=== PATIENT | female | born 1980 | race Two or more races ===

== ENCOUNTER 2022-11-23 11:01 | Emergency (ER) | payer BC, MEDICAID, SELFPAY ==
[2022-11-23 11:11] VITALS: BP 118/77; PULSE 65; RESP 20; TEMP 36.6; O2SAT 97; BMI 25.8
[2022-11-23 11:13] VITALS: BP 118/77; PULSE 65; RESP 16; O2SAT 99
--- NOTE | 2022-11-23 11:19 | W.ED.ABDPA2 ---
HPI - Abdominal Pain General: Chief Complaint: Nausea/Vomiting/Diarrhea Stated Complaint: ABD pain Time Seen by Provider: 11/23/22 11:03 Source: patient Mode of arrival: ambulatory History of Present Illness: 41-year-old female presents to the emergency room with complaints of abdominal pain. The last 4 days she had nausea vomiting and diarrhea she reports loose dark green stools. She has not had any fever sweats or chills. She has had a lot of vomiting no dysuria urgency or frequency or hematuria. She is not been able to eat or drink much. No previous abdominal surgeries no history of nephrolithiasis. No history of pancreatitis patient is not a regular drinker. MD elicited complaint: abdominal pain Pertinent past history: none Onset (ago): minute(s) Pain Consistency: constant Location: None Quality: cramping Radiation: LUQ Exacerbating factors: nothing Relieving factors: nothing Associated Symptoms: Reports bloating, chills, diarrhea, nausea, poor appetite and vomiting; Denies anorexia, belching, change in bowel habits, change in stool character, coffee ground emesis, constipation, GI cramping, dyspepsia, dysuria, excessive flatus, fever(s), heartburn, hematochezia, hematuria, hematemesis, fecal incontinence, loose stools, melena and syncope Review of Systems Const: Reports: chills and change in appetite; Denies: fever(s) ENMT: Denies: throat pain, ear or mastoid pain, nasal discharge or nasal congestion Card: Denies: syncope Resp: Denies: dyspnea, productive cough or non-productive cough GI: Reports: abdominal pain, nausea, vomiting, diarrhea and bloating; Denies: hematemesis, coffee ground emesis, heartburn, constipation, GI cramping, belching, excessive flatus, fecal incontinence, change in bowel habits, change in stool character, hematochezia or melena : Denies: flank pain, dysuria, urinary frequency, urinary urgency or hematuria Skin/Breast: Denies: rash or pruritus Physical Exam Const: GENERAL APPEARANCE: cooperative ORIENTATION/CONSCIOUSNESS: Yes awake, Yes oriented to person, Yes oriented to place and Yes oriented to time HENMT: COMMON NORMALS: normocephalic, atraumatic and hearing grossly normal bilaterally HEAD & SCALP: normocephalic and atraumatic Resp: COMMON NORMALS: normal respiratory effort, No retractions, No use of accessory muscles and clear to auscultation bilaterally AUSCULTATION: clear to auscultation bilaterally Cardio: COMMON NORMALS: regular rate, regular rhythm and No murmurs present (Cardio) RATE: regular rate RHYTHM: regular rhythm GI: COMMON NORMALS: No hepatosplenomegaly present AUSCULTATION: Yes normoactive bowel sounds PALPATION: Yes Tenderness to palpation present (GI) Details: LUQ, No Guarding due to palpation present (GI) and Yes No hepatosplenomegaly present Extremity: COMMON NORMALS: normal to inspection, capillary refill normal, no clubbing, cyanosis or edema, no calf tenderness and no pedal edema Neuro: SENSORIUM/ORIENTATION: Yes oriented to person, Yes oriented to place and Yes oriented to time Skin: COMMON NORMALS: no rashes or lesions noted GENERAL SKIN EXAM: no rashes or lesions noted Course Vital Signs: Vital signs: Vital Signs Temperature 97.9 F 11/23/22 11:11 Pulse Rate 65 11/23/22 11:11 Respiratory Rate 16 11/23/22 11:38 Blood Pressure 118/77 11/23/22 11:11 Pulse Oximetry 99 11/23/22 11:38 Oxygen Delivery Me thod Room Air 11/23/22 11:11 MDM - Abdominal Pain Medical Decision Making Symptoms improved with a liter of fluids and antiemetics. Her liver enzymes and bili are normal she has mild elevation of her lipase her left upper quadrant abdominal discomfort is already resolved. Discussed with her at this point I think the best thing for her is clear liquid diet for the next few days she can use hydrocodone for pain if needed promethazine as needed for nausea vomiting advance diet as tolerated if worsens or changes return to the emergency room Differential Diagnosis Likely abdominal pain, calculus of kidney, constipation, diverticulitis, gastroenteritis, pancreatitis and small bowel obstruction Medical Records I reviewed the patient's medical records. Lab Data I reviewed the patient's lab results. 11/23/22 11:34 11/23/22 11:34 Labs/Radiology: Radiology Impressions Abdomen/Pelvis CT 11/23/22 11:26 IMPRESSION: No acute findings. Laboratory Results WBC 10.0 10^3/uL (4.0-10.0) 11/23/22 11:34 RBC 4.45 10^6/uL (4.1-5.3) 11/23/22 11:34 Hgb 10.5 g/dL (11.5-15.3) L 11/23/22 11:34 Hct 33.1 % (37.0-47.0) L 11/23/22 11:34 MCV 74.4 fl (81-99) L 11/23/22 11:34 MCH 23.6 pg (28.0-34.0) L 11/23/22 11:34 MCHC 31.7 g/dL (30.0-36.0) 11/23/22 11:34 RDW 16.1 % (12.1-15.1) H 11/23/22 11:34 Plt Count 338 10^3/cmm (130-400) 11/23/22 11:34 MPV 10.0 fL (7.4-10.4) 11/23/22 11:34 Neut % (Auto) 68.9 % 11/23/22 11:34 Lymph % (Auto) 19.5 % 11/23/22 11:34 [place] % (Auto) 10.8 % 11/23/22 11:34 Eos % (Auto) 0.0 % 11/23/22 11:34 Baso % (Auto) 0.3 % 11/23/22 11:34 Neut # (Auto) 6.86 10^3/uL (1.8-7.7) 11/23/22 11:34 Lymph # (Auto) 1.9 10^3/uL (0.8-4.8) 11/23/22 11:34 [place] # (Auto) 1.1 10^3/uL (0.2-0.9) H 11/23/22 11:34 Eos # (Auto) 0.0 10^3/uL (0.0-0.8) 11/23/22 11:34 Baso # (Auto) 0.0 10^3/uL (0.0-0.1) 11/23/22 11:34 Nucleated RBC % (auto) 0 % 11/23/22 11:34 Nucleated RBCs # 0.0 /100WBC 11/23/22 11:34 Sodium 134 mmol/L (136-145) L 11/23/22 11:34 Potassium 3.2 mmol/L (3.5-5.1) L 11/23/22 11:34 Chloride 98 mmol/L (98-107) 11/23/22 11:34 Carbon Dioxide 22 mmol/L (22-29) 11/23/22 11:34 Anion Gap 17.2 (5-19) 11/23/22 11:34 BUN 10 mg/dL (6-20) 11/23/22 11:34 Creatinine 0.9 mg/dL (0.5-0.9) 11/23/22 11:34 GFR Calculation 69.7 mL/min (90-130) L 11/23/22 11:34 Glucose 96 mg/dL (65-115) 11/23/22 11:34 Calculated Osmolality 277 mOsm/kg (285-295) L 11/23/22 11:34 Lactic Acid 1.6 mmol/L (0.5-2.2) 11/23/22 11:34 Calcium 10.1 mg/dL (8.5-10.5) 11/23/22 11:34 Total Bilirubin 0.2 mg/dL (0.15-1.2) 11/23/22 11:34 AST 16 U/L (0-32) 11/23/22 11:34 ALT 12 U/L (0-33) 11/23/22 11:34 Alkaline Phosphatase 53 U/L (35-105) 11/23/22 11:34 Total Protein 7.7 g/dL (6.6-8.7) 11/23/22 11:34 Albumin 4.5 g/dL (3.5-5.2) 11/23/22 11:34 Globulin 3.2 g/dL (1.3-4.6) 11/23/22 11:34 Lipase 91 U/L (13-60) H 11/23/22 11:34 HCG, Qual Negative (Negative) 11/23/22 11:34 Urine Color Yellow (Yellow) 11/23/22 11:50 Urine Appearance Clear (CLEAR) 11/23/22 11:50 Urine pH 5 (5-7) 11/23/22 11:50 Ur Specific [place] 1.015 (1.005-1.030) 11/23/22 11:50 Urine Protein Neg (Negative) 11/23/22 11:50 Urine Glucose (UA) Norm (Normal) 11/23/22 11:50 Urine Ketones 2+ (Negative) H 11/23/22 11:50 Urine Blood Neg (Negative) 11/23/22 11:50 Urine Nitrate Negative (Negative) 11/23/22 11:50 Urine Bilirubin Neg (Negative) 11/23/22 11:50 Urine Urobilinogen Norm mg/dL (Negative) 11/23/22 11:50 Ur Leukocyte Esterase Negative (Negative) 11/23/22 11:50 Discharge Plan Discharge Patient Disposition: Home Clinical Impression: Abdominal pain, Pancreatitis Condition: Stable Prescriptions: New hydrocodone-acetaminophen 5-325 mg tablet 1 tab PO Q6H PRN (Reason: pain) Qty: 7 0RF promethazine 25 mg tablet 25 mg PO Q6H PRN (Reason: nausea and vomiting) Qty: 20 0RF Discharge Orders: Discharge ED (Routine); Ordered 11/23/22 Ordered By: Kade Ricardo Discharge Diet: Clear Liquid Discharge Activity: Increase activity as tolerated Patient Instructions: Abdominal Pain (ED), Opioid Safety, Pain Management Activity Restrictions/Additional Instructions: You were evaluated in the emergency room for nausea vomiting diarrhea and abdominal pain. Your liver functions are normal your lipase was slightly elevated. Since your symptoms resolved with fluids we we recommend clear liquid diet for the next 24 to 48 hours then advance as tolerated. If you have any worsening or change symptoms return to the emergency room Coding Level of Care Code ED Resident Care Supervisor for Zenia Gee
--- NOTE | 2022-11-23 11:26 | CTR_ITS ---
PROCEDURE INFORMATION: Exam: CT Abdomen And Pelvis Without Contrast Exam date and time: 11/23/2022 12:20 PM Age: 41 years old Clinical indication: Abdominal tenderness; Patient HX: Pain x4-5 days wo trauma/injury; PT states pain has decreased since iv fluids. ; Additional info: Abdominal pain TECHNIQUE: Imaging protocol: Computed tomography of the abdomen and pelvis without contrast. Radiation optimization: All CT scans at this facility use at least one of these dose optimization techniques: automated exposure control; mA and/or kV adjustment per patient size (includes targeted exams where dose is matched to clinical indication); or iterative reconstruction. REPORTING DATA: Count of CT and Cardiac NM exams in prior 12 months: This patient has received 0 known CTs and 0 known cardiac nuclear medicine studies in the 12 months prior to the current study. COMPARISON: No relevant prior studies available. RADIATION DOSE METRICS: Total DLP (mGy-cm): 475.15 FINDINGS: Liver: Normal without focal lesions. Gallbladder and bile ducts: Normal. No calcified stones. No ductal dilation. Pancreas: Normal without ductal dilatation. Spleen: Normal. Adrenal glands: Normal. No mass. Kidneys and ureters: Normal. No hydronephrosis. Stomach and bowel: No dilatation. No evidence of mucosal thickening. Appendix: Normal. Intraperitoneal space: Small volume free pelvic fluid is likely physiologic. No free air or well organized fluid collection. Vasculature: Unremarkable. No abdominal aortic aneurysm. Lymph nodes: No enlarged lymph nodes. Urinary bladder: Urinary bladder is unremarkable. Reproductive: Unremarkable as visualized. Bones/joints: Unremarkable. No acute fracture. Soft tissues: Unremarkable. CT/CT abdomen pelvis wo con [id number] IMPRESSION: No acute findings.
[2022-11-23 11:38] VITALS: RESP 16; O2SAT 99
[2022-11-23] MEDS: ondansetron 2 mg/ML SDV 2 mL 4 MG IVP (11:38)
[2022-11-23] MEDS: morphine 4 mg/mL SDV 1 mL IVP (11:38)
[2022-11-23] MEDS: sodium chloride 0.9% 1,000 ML 999 ML IV ×2 (11:39→13:07)
[2022-11-23 11:46] LABS: Basophils % 0.3 %; Hematocrit 33.1 % (37.0-47.0); Hemoglobin 10.5 g/dL (11.5-15.3); Lymphocytes # 1.9 10^3/uL (0.8-4.8); Lymphocytes % 19.5 %; Mean Corpuscular HGB Conc 31.7 g/dL (30.0-36.0); Mean Corpuscular Hemoglobin 23.6 pg (28.0-34.0); Mean Corpuscular Volume 74.4 fl (81-99); Monocytes # 1.1 10^3/uL (0.2-0.9); Monocytes % 10.8 %; Neutrophils # 6.86 10^3/uL (1.8-7.7); Neutrophils % 68.9 %; Nucleated Red Blood Cells % 0 %; Platelet Count 338 10^3/cmm (130-400); Red Blood Count 4.45 10^6/uL (4.1-5.3); Red Cell Distribution Width 16.1 % (12.1-15.1)
[2022-11-23 12:02] LABS: HCG, Serum Qual Negative (Negative)
[2022-11-23 12:06] LABS: Add Urine Microscopic? NO; Charge for UA Resulting for Rev
[2022-11-23 12:06] LABS: Lactic Sepsis W/Reflex 1.6 mmol/L (0.5-2.2)
[2022-11-23 12:07] LABS: Alanine Aminotransferase 12 U/L (0-33); Albumin Level 4.5 g/dL (3.5-5.2); Alkaline Phosphatase 53 U/L (35-105); Anion Gap 17.2 (5-19); Aspartate Amino Transferase 16 U/L (0-32); Blood Urea Nitrogen 10 mg/dL (6-20); Calcium 10.1 mg/dL (8.5-10.5); Carbon Dioxide 22 mmol/L (22-29); Chloride 98 mmol/L (98-107); Globulin 3.2 g/dL (1.3-4.6); Glomerular Filtration Rate 69.7 mL/min (90-130); Glucose 96 mg/dL (65-115); Lipase 91 U/L (13-60); Osmolality Calculated 277 mOsm/kg (285-295); Potassium 3.2 mmol/L (3.5-5.1); Sodium 134 mmol/L (136-145); Total Bilirubin 0.2 mg/dL (0.15-1.2); Total Protein 7.7 g/dL (6.6-8.7)
[2022-11-23 12:22] LABS: Bilirubin Urine Neg (Negative); Blood Urine Neg (Negative); Glucose Urine UA Norm (Normal); Ketones Urine 2+ (Negative); Leukocyte Esterase Urine Negative (Negative); Nitrate Urine Negative (Negative); Protein Urine Neg (Negative); Specific Gravity, Urine 1.015 (1.005-1.030); Urine Appearance Clear (CLEAR); Urine Color Yellow (Yellow); Urobilinogen Urine Norm (Negative); pH Urine 5 (5-7)
[2022-11-23 12:30] VITALS: BP 119/69; PULSE 57; RESP 16; O2SAT 100
[2022-11-23 13:19] VITALS: BP 108/58; PULSE 54; RESP 16; O2SAT 100
[2022-11-23] MEDS: potassium chloride oral liq 20 mEq/15 mL UDC 40 MEQ PO (14:13)
[2022-11-23 14:17] VITALS: BP 115/65; PULSE 76; RESP 16; O2SAT 100
== END 2022-11-23 14:19 | disposition home or self-care (01) ==
PROVIDERS: Emergency Provider Family Medicine
DX: K85.90 Acute pancreatitis without necrosis or infection, unspecified (principal)
CPT/HCPCS: 74176; 80053; 81003; 83605; 83690; 84703; 85025; 96361; 96374; 96375; 99284; J2270; J2405; J7030